=== PATIENT | female | born 1935 | race Caucasian/White ===

== ENCOUNTER 2021-07-13 17:06 | Inpatient (IN) | payer MEDICARE, MEDICAID ==
[~2021-07-13] VITALS: Ht 154.9 cm; Wt 65.8 kg
[~2021-07-13 17:06] MED LIST: LAMO50TA3 PO; LEVO50TA8 PO; MECL-115 PO; OMEP20TA2 PO
[2021-07-13] MEDS ORDERED: LABETALOL 5MG/ML SYR 20 MG/4 ML SYRINGE IV PRN (17:30)
[2021-07-13 17:54] LABS: CHLORIDE 106 mEq/L (98-107)
[2021-07-13 17:58] LABS: ETHANOL BLOOD < 10 mg/dL
[2021-07-13 18:49] LABS: CLARITY URINE CLEAR (CLEAR); COLOR URINE YELLOW (YELLOW); KETONES URINE NEGATIVE (NEGATIVE); LEUKOCYTE ESTERASE URINE 1+ (NEGATIVE); NITRITE URINE NEGATIVE (NEGATIVE); OCCULT BLOOD URINE NEGATIVE (NEGATIVE); PH URINE 7.5 (4.5-8.0); PROTEIN URINE NEGATIVE (NEGATIVE); SPECIFIC GRAVITY URINE 1.019 (1.005-1.030); UROBILINOGEN URINE 0.2 E.U./dL (0.2-1.0)
[2021-07-13 18:59] LABS: *BARBITURATES SCREEN URINE NEGATIVE (NEGATIVE)
[2021-07-13 19:00] LABS: *AMPHETAMINES SCREEN URINE NEGATIVE (NEGATIVE); *BENZODIAZEPINES SCREEN URINE NEGATIVE (NEGATIVE); *COCAINE SCREEN URINE NEGATIVE (NEGATIVE); METHADONE URINE SCREEN NEGATIVE (NEGATIVE); OPIATES URINE SCREEN NEGATIVE (NEGATIVE)
[2021-07-13 19:01] LABS: CANNABINOID URINE SCREEN NEGATIVE (NEGATIVE); PHENCYCLIDINE URINE SCREEN NEGATIVE (NEGATIVE)
[2021-07-13 19:52] LABS: BASOPHILS % 0.7 % (0.0-2.0); EOSINOPHILS % 2.5 % (0.0-5.0); HEMATOCRIT. 43.8 % (36.0-48.0); HEMOGLOBIN. 14.6 g/dL (12.0-16.0); LYMPHOCYTES % 33.3 % (20.0-50.0); MEAN CORPUSCULAR VOLUME 92.7 fL (81.0-99.0); MONOCYTES % 8.4 % (2.0-8.0); NEUTROPHILS % 55.1 % (40.0-76.0); RED BLOOD CELL COUNT 4.72 mill/uL (4.2-5.4); RED CELL DISTRIBUTION WIDTH 14.4 % (11.6-14.6)
[2021-07-13] MEDS ORDERED: IOHEXOL-350 100 ML BOTTLE ONE (19:53)
[2021-07-13 21:21] LABS: MEAN PLATELET VOLUME 10.5 fl (7.4-10.4); PLATELET 136 x1000/uL (130-400)
[2021-07-13 23:00] VITALS: BP 154/72
[2021-07-14] VITALS: BP 154/72
[2021-07-14] MEDS ORDERED: HYDR25TA MT (00:46)
[2021-07-14] MEDS ORDERED: CLONIDINE 0.1MG TABLET PO PRN (01:15)
[2021-07-14] MEDS ORDERED: IPRATROPIUM/ALBUTEROL 0.5-3(2.5)MG/3ML NEB HHN PRN (01:15)
[2021-07-14 04:00] VITALS: BP 126/54
[2021-07-14] MEDS: LEVOTHYROXINE SODIUM 50MCG TABLET PO SCH (06:30)
[2021-07-14] MEDS: HYDROCHLOROTHIAZIDE 25MG TABLET PO SCH ×3 (06:31→21:15)
[2021-07-14 08:00] VITALS: BP 128/55
[2021-07-14] MEDS: MECLIZINE 25MG TABLET PO SCH ×2 (10:35→17:40)
[2021-07-14] MEDS: LOSARTAN POTASSIUM 50 MG TABLET PO SCH (10:35)
[2021-07-14 12:00] VITALS: BP 124/50
[2021-07-14 16:00] VITALS: BP_SYST 113; BP_SYST 97; BP_DIAS 47; BP_DIAS 54
[2021-07-14 20:00] VITALS: BP 134/74
[2021-07-15 00:01] VITALS: BP 123/66
[2021-07-15 04:00] VITALS: BP 115/51
[2021-07-15] MEDS: HYDROCHLOROTHIAZIDE 25MG TABLET PO SCH ×2 (06:35→15:13)
[2021-07-15] MEDS: LEVOTHYROXINE SODIUM 50MCG TABLET PO SCH (06:35)
[2021-07-15 08:00] VITALS: BP_SYST 112; BP_SYST 132; BP_DIAS 63; BP_DIAS 82
[2021-07-15] MEDS: LOSARTAN POTASSIUM 50 MG TABLET PO SCH (09:00)
[2021-07-15] MEDS: MECLIZINE 25MG TABLET PO SCH (09:00)
[2021-07-15] MEDS ORDERED: ASPIRIN 81MG TABLET PO SCH (09:00)
[2021-07-15 12:00] VITALS: BP 121/58
[2021-07-15] MEDS ORDERED: ASPI-1497 MT (12:47)
[2021-07-15 13:35] LABS: BASOPHILS % 0.6 % (0.0-2.0); EOSINOPHILS % 2.4 % (0.0-5.0); HEMATOCRIT. 43.8 % (36.0-48.0); HEMOGLOBIN. 14.7 g/dL (12.0-16.0); LYMPHOCYTES % 32.8 % (20.0-50.0); MEAN CORPUSCULAR HEMOGLOBIN 30.5 pg (28.0-32.0); MEAN CORPUSCULAR VOLUME 91.3 fL (81.0-99.0); MEAN PLATELET VOLUME 10.1 fl (7.4-10.4); MONOCYTES % 11.7 % (2.0-8.0); NEUTROPHILS % 52.5 % (40.0-76.0); PLATELET 186 x1000/uL (130-400); RED CELL DISTRIBUTION WIDTH 14.9 % (11.6-14.6)
[2021-07-15 13:50] LABS: CHLORIDE 105 mEq/L (98-107)
[2021-07-15 14:30] VITALS: BP 123/58
== END 2021-07-15 17:04 | disposition home or self-care (01) | DRG 71 ==
LOC: ER 17:06 → 6WST 18:24 → ENRESERV 20:31
PROVIDERS: ADMIT Internal Medicine; ATTEND Internal Medicine
PROC: 4A10X4Z Monitoring of Central Nervous Electrical Activity, External Approach (ICD-10-PCS; principal; 2021-07-15)
DX: G93.41 Metabolic encephalopathy (principal); I69.351 Hemiplegia and hemiparesis following cerebral infarction affecting right dominant side; E03.9 Hypothyroidism, unspecified; G31.9 Degenerative disease of nervous system, unspecified; I10 Essential (primary) hypertension; Z79.899 Other long term (current) drug therapy
CPT/HCPCS: 36415; 70496; 70498; 71045; 80053; 80305; 80320; 81003; 82962; 84484; 85025; 93005; 95816; 97162; 99291; J8597; Q9967; G0480